=== PATIENT | female | born 1930 | race Caucasian/White ===

== ENCOUNTER 2017-03-10 03:41 | Inpatient (IN) | payer OTHER, MEDICAID ==
[~2017-03-10] VITALS: Ht 162.6 cm; Wt 65.0 kg
[2017-03-10 03:41] VITALS: BP_SYST 136
[2017-03-10] MEDS ORDERED: HYDROmorphone 1 MG INJ. 1 MG/ML AMPUL IVP ONE ×2 (04:00→06:00)
[2017-03-10] MEDS ORDERED: MULT-1164 PO (05:27)
[2017-03-10] MEDS ORDERED: DULO20CA PO (05:27)
[2017-03-10] MEDS ORDERED: FAMO40TA7 PO (05:28)
[2017-03-10] MEDS ORDERED: ASPI-1063 PO (05:28)
[2017-03-10] MEDS ORDERED: METO25TA6 PO (05:28)
[2017-03-10] MEDS ORDERED: LOVA20TA2 PO (05:29)
[2017-03-10] MEDS ORDERED: BUSP15TA3 PO (05:29)
[2017-03-10] MEDS ORDERED: TYC3 PO (05:31)
[2017-03-10] MEDS ORDERED: ALPR0.2583 PO (05:33)
[2017-03-10] MEDS ORDERED: ACET-73 PO (05:34)
[2017-03-10] MEDS ORDERED: GUAI5SYR PO (05:35)
[2017-03-10] MEDS ORDERED: DIPH25CA83 PO (05:35)
[2017-03-10] MEDS ORDERED: FLUT1DIS3 INH (05:36)
[2017-03-10] MEDS ORDERED: LATA2.5D6 OP (05:37)
[2017-03-10] MEDS ORDERED: [UNRECOGNIZED DRUG - CODE] OP (05:39)
[2017-03-10] MEDS ORDERED: CAPS1ADH9 TP (05:41)
[2017-03-10] MEDS ORDERED: [UNRECOGNIZED DRUG - OTHER] OP (05:43)
[2017-03-10 06:31] LABS: BASOPHILS % (AUTO) 0.1 % (0.0-2.0); EOSINOPHILS # (AUTO) 0.4 K/uL (0.0-0.4); EOSINOPHILS % (AUTO) 3.6 % (0.0-4.0); HEMATOCRIT 41.1 % (36-48); HEMOGLOBIN 13.7 g/dL (12.0-16.0); LYMPHOCYTES # (AUTO) 1.5 K/uL (1.0-5.5); LYMPHOCYTES % (AUTO) 14.3 % (20.5-51.5); MEAN CORPUSCULAR HEMOGLOBIN 32 pg (27-31); MEAN CORPUSCULAR HGB CONC 33 % (32-36); MEAN CORPUSCULAR VOLUME 95 fL (79.0-98.0); MONOCYTES # (AUTO) 0.9 K/uL (0.0-1.0); MONOCYTES % (AUTO) 8.7 % (1.7-9.3); NEUTROPHILS # (AUTO) 7.9 K/uL (1.8-7.7); NEUTROPHILS % (AUTO) 73.3 % (40.0-70.0); PLATELET COUNT (AUTO) 338 K/uL (130-430); RED BLOOD CELL COUNT(AUTO) 4.33 MIL/uL (4.2-6.2); RED CELL DISTRIBUTION WIDTH 12.8 % (9.0-15.0); WHITE BLOOD COUNT (AUTO) 10.7 K/uL (4.8-10.8)
[2017-03-10 06:51] LABS: ANION GAP 10 (5-15); CHLORIDE 102 mmol/L (98-107); CREATININE 0.88 mg/dL (0.55-1.30); GLUCOSE 116 mg/dL (70-99); POTASSIUM 3.8 mmol/L (3.5-5.1); SODIUM SERUM 136 mmol/L (136-145); UREA NITROGEN, BLOOD 17 mg/dL (8-21)
[2017-03-10 06:56] LABS: ALANINE AMINOTRANSFERASE 21 U/L (12-78); ALBUMIN 3.6 g/dL (3.4-4.8); ASPARTATE AMINOTRANSFERASE 33 U/L (10-37); TOTAL BILIRUBIN 0.5 mg/dL (0.0-1.0)
[2017-03-10 07:07] LABS: PROTHROMBIN TIME 10.8 SECS (9.5-12.5)
[2017-03-10 08:01] VITALS: BP_SYST 155
[2017-03-10] MEDS ORDERED: ONDANSETRON HCL 4 MG/2 ML VIAL IVP PRN ×2 (08:45→13:00)
[2017-03-10] MEDS ORDERED: IPRATROPIUM BROM 0.5 MG/2.5 ML VIAL.NEB (ATROVENT) INH PRN (08:45)
[2017-03-10] MEDS ORDERED: MORPHINE 2 MG/ML INJ. SYRINGE IVP PRN (08:45)
[2017-03-10] MEDS ORDERED: ALBUTEROL SULFATE 0.083% 2.5 MG/3 ML VIAL.NEB INH PRN (08:45)
[2017-03-10] MEDS ORDERED: ACETAMINOPHEN 325 MG TABLET PO PRN (08:45)
[2017-03-10] MEDS: DULoxetine HCL 20 MG CAPSULE.DR PO SCH (09:00)
[2017-03-10] MEDS ORDERED: LORazepam 1 MG TABLET PO PRN (09:00)
[2017-03-10] MEDS: METOPROLOL TARTRATE 25 MG TABLET PO SCH ×2 (09:00→21:46)
[2017-03-10] MEDS: FAMOTIDINE 20 MG TABLET PO SCH (09:00)
[2017-03-10] MEDS: busPIRone HCL 5 MG TABLET PO SCH ×4 (09:00→21:45)
[2017-03-10] MEDS: FLUTICASONE/VILANTEROL 1 EACH BLST.W.DEV INH SCH (09:00)
[2017-03-10] MEDS ORDERED: DIPHENHYDRAMINE HCL 25 MG CAPSULE PO PRN ×2 (09:00→13:00)
[2017-03-10 10:10] VITALS: BP_SYST 155
[2017-03-10] MEDS: D5LR 1,000 ML IV SCH ×3 (11:01→22:48)
[2017-03-10] MEDS: IPRATROPIUM BROM 0.5 MG/2.5 ML VIAL.NEB (ATROVENT) INH SCH ×4 (11:08→23:00)
[2017-03-10] MEDS: ALBUTEROL SULFATE 0.083% 2.5 MG/3 ML VIAL.NEB INH SCH ×4 (11:08→23:00)
[2017-03-10 12:40] VITALS: BP_SYST 155
[2017-03-10] MEDS ORDERED: ePHEDrine sulfate 50 MG/ML VIAL IVP PRN (13:00)
[2017-03-10] MEDS ORDERED: LABETALOL 100 MG/ 20ML VIAL IVP PRN (13:00)
[2017-03-10] MEDS ORDERED: fentaNYL CITRATE/PF 100 MCG/2 ML AMP IVP PRN (13:00)
[2017-03-10] MEDS ORDERED: MIDAZOLAM HCL 5 MG/5 ML VIAL IVP PRN (13:00)
[2017-03-10] MEDS ORDERED: KETOROLAC TROMETHAMINE 30 MG VIAL IM PRN (13:00)
[2017-03-10] MEDS ORDERED: NALOXONE HCL 0.4 MG/ML AMP (NARCAN) IVP PRN (13:00)
[2017-03-10 16:44] VITALS: BP_SYST 156
[2017-03-10] MEDS ORDERED: SEVOFLURANE 15 MIN GAS INH ONE (16:51)
[2017-03-10] MEDS ORDERED: PROPOFOL 200MG/ 20ML VIAL (DIPRIVAN) IV ONE (16:51)
[2017-03-10] MEDS ORDERED: LIDOCAINE MPF 1% 50 MG/5 ML AMP INJ ONE (16:51)
[2017-03-10] MEDS ORDERED: LR 1,000 ML IV.SOLN IV ONE (16:51)
[2017-03-10] MEDS ORDERED: SUCCINYLCHOLINE CHLORIDE 20 MG/ML(QUELICIN) IVP ONE (16:51)
[2017-03-10] MEDS: ACETAMINOPHEN/CODEINE 300 MG-30 MG TABLET PO PRN ×2 (17:35→21:47)
[2017-03-10 19:40] VITALS: BP_SYST 131
[2017-03-10] MEDS ORDERED: SIMVASTATIN 10 MG TABLET PO SCH (21:00)
[2017-03-10] MEDS: DOCUSATE SODIUM 100 MG CAPSULE PO SCH (21:00)
[2017-03-11 00:25] VITALS: BP_SYST 104
[2017-03-11] MEDS: D5LR 1,000 ML IV SCH (02:45)
[2017-03-11] MEDS: ALBUTEROL SULFATE 0.083% 2.5 MG/3 ML VIAL.NEB INH SCH ×4 (03:00→11:40)
[2017-03-11] MEDS: IPRATROPIUM BROM 0.5 MG/2.5 ML VIAL.NEB (ATROVENT) INH SCH ×4 (03:00→11:40)
[2017-03-11] MEDS: ACETAMINOPHEN/CODEINE 300 MG-30 MG TABLET PO PRN (04:23)
[2017-03-11 04:42] VITALS: BP_SYST 162
[2017-03-11 08:45] VITALS: BP_SYST 135
[2017-03-11] MEDS ORDERED: ENOXAPARIN SODIUM 40 MG/0.4 ML SYRINGE SUBCUT SCH (09:00)
[2017-03-11] MEDS: FLUTICASONE/VILANTEROL 1 EACH BLST.W.DEV INH SCH (09:00)
[2017-03-11] MEDS: busPIRone HCL 5 MG TABLET PO SCH (09:01)
[2017-03-11] MEDS: FAMOTIDINE 20 MG TABLET PO SCH (09:01)
[2017-03-11] MEDS: DULoxetine HCL 20 MG CAPSULE.DR PO SCH (09:02)
[2017-03-11] MEDS: DOCUSATE SODIUM 100 MG CAPSULE PO SCH (09:02)
[2017-03-11] MEDS: METOPROLOL TARTRATE 25 MG TABLET PO SCH (09:02)
[2017-03-11 12:00] VITALS: BP_SYST 148
[2017-03-11 14:39] VITALS: BP_SYST 140
== END 2017-03-11 15:32 | DRG 538 ==
LOC: SED 03:41 → SMU 06:38
PROVIDERS: ADMIT Internal Medicine Hospice and Palliative Medicine; ATTEND Internal Medicine Hospice and Palliative Medicine
PROC: 0QS9XZZ Reposition Left Femoral Shaft, External Approach (ICD-10-PCS; principal; 2017-03-10 12:45)
DX: S73.005A Unspecified dislocation of left hip, initial encounter (principal); J84.10 Pulmonary fibrosis, unspecified; F03.90 Unspecified dementia, unspecified severity, without behavioral disturbance, psychotic disturbance, mood disturbance, and anxiety; W18.30XA Fall on same level, unspecified, initial encounter; J44.9 Chronic obstructive pulmonary disease, unspecified; F32.9 Major depressive disorder, single episode, unspecified; F41.9 Anxiety disorder, unspecified; F17.210 Nicotine dependence, cigarettes, uncomplicated; R09.02 Hypoxemia; Y93.89 Activity, other specified; Y92.89 Other specified places as the place of occurrence of the external cause; Y99.8 Other external cause status; Z88.2 Allergy status to sulfonamides
CPT/HCPCS: 36415; 36600; 71010; 72170-TC; 76000; 80053; 82803-TC; 85025; 85610-TC; 87081; 94640; 94760; 96374; 96376; 97116-GP; 97530-GP; 99285; J0330; J1170; J1650; J2001; J2704; J7120